=== PATIENT | female | born 1985 | race Caucasian/White ===

== ENCOUNTER 2024-09-06 13:48 | Emergency (ER) | payer BC, SELFPAY ==
[2024-09-06 13:54] VITALS: BP 127/81; PULSE 58; RESP 16; TEMP 36.7; O2SAT 97
--- NOTE | 2024-09-06 14:03 | ED.GENADULT ---
HPI - General Adult General Chief complaint: Unspecified Stated complaint: Veins Showing on Arm Time Seen by Provider: 09/06/24 14:04 Source: patient Mode of arrival: ambulatory Limitations: no limitations History of Present Illness HPI narrative: 39-year-old female presented for complaint of concern for bulging veins in the left upper arm. She first noticed this 5 days ago which was about 2 days after exercise. Pt says now veins are spreading to the left chest. Reports mild pain to the bicep and tricep area. Denies redness or pain to the veins or to the arm, denies swelling or bruising. Denies chest pain, palpitations, numbness, tingling, weakness or decreased range of motion to the arm. No pain at rest. Says she was able to do arm exercises since the onset, without difficulty. Related Data Home Medications Medication Instructions Recorded Confirmed carbamazepine 200 mg mg PO 09/06/24 tablet,extended release,12 hr norethindrone (contraceptive) 0.35 mg 09/06/24 mg tablet (Rosette) quetiapine 200 mg tablet,extended mg PO 09/06/24 release 24 hr Allergies Allergy/AdvReac Type Severity Reaction Status Date / Time aripiprazole Allergy Unknown Other Verified 09/06/24 13:51 Review of Systems Review of Systems: CONSTITUTIONAL: Denies body aches, fever, chills ENT: Denies rhinorrhea, congestion CARDIOVASCULAR: Denies chest pain, palpitations, or edema. RESPIRATORY: Denies cough or dyspnea. GASTROINTESTINAL: Denies abdominal pain, nausea, vomiting, or diarrhea. SKIN: Reports bulging veins left arm MUSCULOSKELETAL: Denies back pain, joint pain, or myalgia. NEUROLOGIC: Denies headache, numbness, tingling, or weakness. All systems reviewed & are unremarkable except as noted in HPI and below [facility] Past Medical History Medical History (Updated 09/06/24 @ 16:08 by Marta Mercado APRN) Epilepsy Surgical History Surgical History (Updated 09/06/24 @ 15:57 by Marta Mercado APRN) H/O brain surgery Comments At time of signature, I have reviewed and agree with nursing past medical, surgical, social and family history unless otherwise noted. Please see nursing chart for further information. There is no relevant family history pertinent to the presenting complaint Exam Narrative: GENERAL: Well-appearing CHEST: Speaks in full sentences. No respiratory distress. HEART: Regular rate and rhythm. Normal and equal peripheral pulses. EXTREMITIES: Veins to the left upper arm appear to be c/w varicose veins to bicep extending to the left anterior chest. Nontender chest. LUE has normal strength and sensation, normal range of motion. No edema, erythema, or ecchymosis. Nontender veins. Nontender bicep/tricep with palpation. No open wounds, or obvious deformity; alignment normal, pulse palpable and equal bilaterally, skin warm, dry, Capillary refill less than 3 seconds. SKIN: Warm, dry, intact NEURO: Alert and oriented x3. PSYCH: Appears anxious, repetitive Course Course Emergency Course: Patient is aware of diagnosis, understands and agrees to treatment plan. Anticipatory guidance given. Patient agrees to follow-up as directed and is aware of reasons to seek care at the emergency department. Portions of this record may have been created with voice recognition software Level of Care: Express Care Visit Vital Signs Vital signs: Vital Signs Temperature 98.1 F 09/06/24 13:54 Pulse Rate 58 L 09/06/24 13:54 Respiratory Rate 16 09/06/24 13:54 Blood Pressure 127/81 09/06/24 13:54 Pulse Oximetry 97 09/06/24 13:54 Oxygen Delivery Room Air 09/06/24 13:54 Temperature 98.1 F 09/06/24 14:05 Pulse Rate 58 L 09/06/24 14:05 Respiratory Rate 16 09/06/24 14:05 Blood Pressure 127/81 09/06/24 14:05 Pulse Oximetry 97 09/06/24 14:05 Oxygen Delivery Room Air 09/06/24 14:05 Reviewed Medical Decision Making MDM Narrative Medical decision making narrative: Disc
[2024-09-06 14:05] VITALS: BP 127/81; PULSE 58; RESP 16; TEMP 36.7; O2SAT 97
== END 2024-09-06 14:18 | disposition left against medical advice (07) ==
LOC: EXPBETH 13:52
PROVIDERS: Emergency Provider Nurse Practitioner Family
DX: I86.8 Varicose veins of other specified sites (principal)
CPT/HCPCS: 99211; G0463